=== PATIENT | male | born 1995 | race Caucasian/White ===

== ENCOUNTER 2022-05-17 21:28 | Emergency (ER) | payer OTHER, BC ==
[2022-05-17] MEDS ORDERED: Bacitracin 1 PK ONE (22:43)
[2022-05-17] MEDS ORDERED: Ibuprofen 800 MG TAB ONE (23:12)
== END 2022-05-18 00:14 | disposition home or self-care (01) ==
LOC: MADERS 21:28
DX: S90.512A Abrasion, left ankle, initial encounter (principal); S50.312A Abrasion of left elbow, initial encounter; S50.812A Abrasion of left forearm, initial encounter; S90.812A Abrasion, left foot, initial encounter; S70.212A Abrasion, left hip, initial encounter; V26.09XA Other motorcycle driver injured in collision with other nonmotor vehicle in nontraffic accident, initial encounter